=== PATIENT | female | born 1975 | race Caucasian/White ===

== ENCOUNTER → 2017-12-20 | Outpatient (CLI) | payer BC ==
[~2017-12-20] MED LIST: ABILIFY 5 MG TAB5 M1 PO; ADULT LOW DOSE81 MG PO; CONCERTA36 MG PO; ULTRAM 50MG TAB50 MG PO; WELLBUTRIN XL300 M1 PO; XANAX; ZOLOFT PO
--- NOTE | 2017-12-20 14:41 | EXE ---
[place] [address] STRESS ECHOCARDIOGRAM Name: GERRI ZULETA Room: [facility]#: [id number] Admission: 12/20/17 Attend Phys: Pennie Andre Discharge: Date of : 75 Date of Service: 12/20/17 1440 Report #: [id number] THIS REPORT FOR: //name// APPROVED REPORT Study performed: 12/20/2017 11:34:53 Exam: Stress Echocardiogram Indication: Chest pain Patient Location: Out-Patient Stress Nurse: Marcia Arcos RN Supervising Physician: Alfredo Lamar MD Status: routine Ht: 5 ft 6 in HR: 58 bpm BP: 108/69 mmHg Rhythm: NSR Medical History Cardiac Risk Factors: FHX of CAD Procedure The patient underwent an Exercise Stress Test using the Luciano Protocol. Blood pressure, heart rate, and EKG were monitored. An Echocardiogram was performed by rail technician in four stages in quad fashion. At peak stress, four selected images were obtained and placed side by side with resting images for comparison. Echo Enhancing Agent Indication: Endocardial border delineation Agent(s) / Amount(s) Used: Optison 8 cc Stress Test Details Stress Test: Exercise stress testing was performed using a Luciano protocol. HR Resting HR: 58 bpm Max Heart Rate (APMHR): 178 bpm Max HR Achieved: 160 bpm Target HR (85% APMHR): 151 bpm % of APMHR: 89 Recovery HR: 88 bpm HR response to stress: Normal HR response to stress BP Resting BP: 108/69 mmHg Max BP: 194/71 [place] [address] STRESS ECHOCARDIOGRAM Name: GERRI ZULETA Room: [facility]#: [id number] Admission: 12/20/17 Attend Phys: Pennie Andre Discharge: Date of : 75 Date of Service: 12/20/17 1440 Report #: [id number] Recovery BP: 127/72 mmHg ECG Resting ECG: Sinus Rhythm, normal Stress EC/2-1 mm of slightly [address] depression in inferolateral leads Clinical Reason for Termination: Dyspnea, Maximal effort Stress Symptoms: Right sided teeth pain Exercise duration: 9 min sec Highest Stage Achieved: Stage 3: 3.4 mph at 14% grade. Exercise capacity: 10.16 METs Pre-Stress Echo The resting Echocardiogram showed normal left ventricular contractility with an estimated Ejection Fraction of about 55-60%. Normal wall motion in all segments on baseline images. Post-Stress Echo The stress Echocardiogram showed normal left ventricular contractility with an estimated Ejection Fraction of about >70%. Normal augmentation of wall motion in all segments on post stress images. Conclusion Clinical Response: Indeterminant Exercise Capacity: Average Stress ECG Response: Indeterminant Stress Echo Images: Non-ischemic Other Information Technically limited study due to body habitus. <ELECTRONICALLY SIGNED> By: Alfredo Lamar MD, FACC 12/20/171439 39 39 Alfredo Lamar MD, FACC /INF
== END ==
LOC: M.CRD 10:33
DX: R07.89 Other chest pain (principal)